=== PATIENT | female | born 1990 | race Caucasian/White ===

== ENCOUNTER 2017-06-08 22:00 | Emergency (ER) | payer BC ==
[~2017-06-08] VITALS: Ht 170.2 cm; Wt 68.0 kg
[2017-06-08 22:10] VITALS: BP 154/90
[2017-06-08] MEDS ORDERED: IV NORMAL SALINE 1,000ML 1,000 ML IV SCH (22:16)
--- NOTE | 2017-06-08 22:25 | PHYS DOC ---
Past History Past Medical History: No Pertinent History Additional Past Medical Histor: prior rib fracture Past Surgical History: No Surgical History Smoking: Non-smoker Alcohol Use: Occasionally Drug Use: None Adult General Chief Complaint Chief Complaint: ABDOMINAL PAIN [facility] HPI Patient is a pleasant otherwise healthy 27-year-old female who is in a monogamous relationship presents with left upper quadrant abdominal/chest wall pain. Her pain began earlier today described as sharp and stabbing with radiation to the sternum. It is worse with certain ranges of motion and breathing. It is not affected by food does not radiate to the back. 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 She denies any shortness of breath, night sweats, fevers has had a nonproductive cough with the symptoms. Patient denies any vomiting, diarrhea or other symptoms. Patient denies any UTI symptoms or back pain. Patient says she's had a prior injury to her ribs on the left after a fall about 5 years ago. Patient has had no travel, no recent antibiotic use. Differential diagnosis for chest pain: Pericarditis, myocarditis, endocarditis, pneumothorax, pneumonia, aortic dissection, esophageal spasm, esophagitis, peptic ulcer disease, acute coronary syndrome, mediastinitis, Boerhaave syndrome , musculoskeletal chest wall pain, costochondritis, intercostal strain, rib fracture, pulmonary contusion, pneumonitis, pleural effusion, pericardial effusion, pericardial tamponode, and pleurisy. Review of Systems Review of Systems Constitutional: Denies fever or chills [] Eyes: Denies change in visual acuity, redness, or eye pain [] HENT: Denies nasal congestion or sore throat [] Respiratory: Patient has a nonproductive cough and shortness of breath only secondary to pain in her chest wall. Cardiovascular: No additional information not addressed in HPI [] GI: He has pain in the left upper quadrant of the abdominal wall with no nausea no vomiting no diarrhea no constipation. : Denies dysuria or hematuria [] Musculoskeletal: Denies back pain or joint pain [] Integument: Denies rash or skin lesions [] Neurologic: Denies headache, focal weakness or sensory changes [] Endocrine: Denies polyuria or polydipsia [] All other systems were reviewed and found to be within normal limits, except as documented in this note. Current Medications Current Medications Current Medications Medications (Trade) Dose Ordered Sig/Eron Start Time Stop Time Status Last Admin Dose Admin Aspirin (Children'S Aspirin) 324 mg 1X ONCE 06/08/17 22:30 06/08/17 22:31 UNV Ketorolac Tromethamine (Toradol) 30 mg 1X ONCE 06/08/17 22:30 06/08/17 22:31 UNV Morphine Sulfate (Morphine 4mg Syringe) 4 mg 1X ONCE 06/08/17 22:30 06/08/17 22:31 UNV Sodium Chloride (Normal Saline Flush) 10 ml QSHIFT PRN 06/08/17 22:30 UNV Physical Exam Physical Exam Constitutional: Well developed, well nourished, no acute distress, non-toxic appearance. [] HENT: Normocephalic, atraumatic, bilateral external ears normal, oropharynx moist, no oral exudates, Neck: Normal range of motion, no tenderness, supple, no stridor. [] Cardiovascular:Heart rate regular rhythm, no murmur [] Lungs & Thorax: Bilateral breath sounds clear to auscultation she has marked tenderness to palpation of the left lateral chest wall with no obvious crepitus , no obvious rash, there is somewhat reproducible chest wall pain on examination. Abdomen: Bowel sounds normal, soft, patient has mild tenderness in left upper quadrant but no masses pulsatile masses released McBurney's point tender to palpation. Skin: Warm, dry, no erythema, no rash. [] Back: No tenderness, no CVA tenderness. [] Extremities: No tenderness, normal range of motion no edema in her lower legs Neurologic: Alert and oriented X 3, normal motor function, normal sensory function, no focal deficits noted. [] Psychologic: Affect normal, judgement normal, mood normal. [] EKG EKG Patient EKG read by me 10:32 PM 06/08/2017 temperature to heart rate of 78 normal sinus rhythm with a period of QRS RI interval is 138 which is normal, QRS width is 96 which [place] [address] normal, there is no ST segment T- wave changes consistent with acute coronary event or ischemia.[] Radiology/Procedures Radiology/Procedures []PA and lateral chest x-ray read by me time on chest x-ray 2247 demonstrates no pneumothorax, no rib fracture no pneumonia and no infiltrate no pleural effusion. Cardiac shadow is normal size. Course & Med Decision Making Course & Med Decision Making Pertinent Labs and Imaging studies reviewed. (See chart for details) []Patient presents with chest wall pain with a cough. Patient likely has pleurisy but given her symptoms we will make sure there is no evidence of pulmonary was him, pleural effusion or pneumonia in the left lower lung. Differential diagnosis for chest pain: Pericarditis, myocarditis, endocarditis, pneumothorax, pneumonia, aortic dissection, esophageal spasm, esophagitis, peptic ulcer disease, acute coronary syndrome, mediastinitis, Boerhaave syndrome , musculoskeletal chest wall pain, costochondritis, intercostal strain, rib fracture, pulmonary contusion, pneumonitis, pleural effusion, pericardial effusion, pericardial tamponode, and pleurisy. History: There is no history physical age and EKG findings patient is a score of 0 Highly suspicious 2 points moderately suspicious 1. slightly suspicious 0 point EKG: ST segment depression 2. nonspecific repolarization disturbance 1. normal 0 point Age: Greater than 65 2 points, 65-45 1., less than 45 years old 0 points Risk factors:> 3 risk factors 2 points, 1-2 risk factors one point, no risk factors 0 point Troponin: > 2 times normal 2 points, 1-2 times normal 1., normal limits 0 point Total score: Score % pts MACE/n MACE Policy 0-3 32% 1.9% 0.05% Discharge 4-6 51% 413/3136 13% 1.3% Observation Risk management 7-10 17% 518/1045 50% 2.8% Observation Treatment, CAGB discharge: I've spoken with the patient and/or caregivers. I've explained the patient's condition, diagnosis and treatment plan based on information available to me at this time. I've answered the patient's and/or caregivers questions and addressed any concerns. The patient and/or caregivers have a good understanding the patient's diagnosis, condition and treatment plan as can be expected at this point. Vital signs have been stabilized. The patient's condition is stable for discharge from the emergency department. The patient will pursue further outpatient evaluation with her primary care provider or other designated consulting physician as outlined in the discharge instructions. Patient and/or caregivers are agreeable to this plan of care and follow-up instructions have been explained in detail. The patient and/or caregivers have received these instructions in written format and expressed understanding of these discharge instructions. The patient and her caregivers are aware that if any significant change in condition or worsening of symptoms should prompt him to immediately return to this of the closest emergency department. If an emergent department is not readily available I would encourage him to call 911. Cristina Disclaimer Cristina Disclaimer This electronic medical record was generated, in whole or in part, using a voice recognition dictation system. Departure Departure: Impression: Primary Impression: Pleurisy Additional Impression: Chest pain Disposition: HOME, SELF-CARE Condition: GOOD Referrals: PCP,NO (PCP) Patient Instructions: Chest Pain (Nonspecific), Chest Wall Pain, Pleurisy Additional Instructions: My discharge plan Although you have low risk chest pain you May still have heart disease despite having an apparent negative workup today. I would advise that you follow-up with your primary care doctor this week to arrange follow-up with her sap architect. The sap architect will help stratify your risk for heart injury in the future. Follow up: In addition patient is asked to followup with their primary doctor, within a week for followup examination and to address patient's ongoing medical conditions. Patient is advised that in the Emergency Department primary complaints are addressed and only in light of known signs and symptoms. Patient should return immediately to the emergency department if new signs and symptoms develop or patient's condition worsens in any way. At time of discharge patient was in stable condition and had verbalized understanding of the discharge instructions. Scripts Hydrocodone Bit/Acetaminophen (HYDROCODONE-APAP 5-325 ) 1 Each Tablet 1 TAB PO PRN Q6HRS Y for PAIN for 5 Days, #10 TAB 0 Refills Prov: LISA TAVERA MD 06/08/17 Naproxen Sodium (NAPROXEN SODIUM) 275 Mg Tablet 275 MG PO BID for 7 Days, #14 TAB Prov: LISA TAVERA MD 06/08/17 Problem Qualifiers LISA TAVERA MD Jun 08, 2017 22:24
[2017-06-08] MEDS ORDERED: KETOROLAC 30 MG/ML VIAL. IV ONE (22:30)
[2017-06-08] MEDS ORDERED: MORPHINE SULFATE 4 MG/ML DISP.SYRIN. IV ONE (22:30)
[2017-06-08 22:42] LABS: BASO # 0.1 x10^3/uL (0.0-0.2); BASO % 1 % (0-3); EOS # 0.1 x10^3/uL (0.0-0.7); EOS % 1 % (0-3); HEMATOCRIT 42.4 % (36.0-47.0); LYMPH # 2.6 x10^3/uL (1.0-4.8); LYMPH % 29 % (24-48); MEAN CORPUSCULAR HEMOGLOBIN 32 pg (25-35); MEAN CORPUSCULAR HGB CONC 35 g/dL (31-37); MEAN CORPUSCULAR VOLUME 91 fL (79-100); MONO # 0.9 x10^3/uL (0.0-1.1); MONO % 10 % (0-9); NEUT # 5.3 x10^3uL (1.8-7.7); NEUT % 59 % (31-73); PLATELET COUNT 247 x10^3/uL (140-400); RED BLOOD COUNT 4.68 x10^6/uL (3.50-5.40); RED CELL DISTRIBUTION WIDTH 12.6 % (11.5-14.5)
[2017-06-08] MEDS ORDERED: 0.9 % SODIUM CHLORIDE 10 ML DISP.SYRIN. IV PRN (23:00)
[2017-06-08] MEDS ORDERED: ASPIRIN 81 MG TAB.CHEW PO ONE (23:00)
[2017-06-08 23:02] LABS: ALBUMIN 4.2 g/dL (3.4-5.0); CALCIUM 9.2 mg/dL (8.5-10.1); CREATININE 0.8 mg/dL (0.6-1.0); DIRECT BILIRUBIN 0.1 mg/dL (0.0-0.2); GFR 87.4; POTASSIUM 3.8 mmol/L (3.5-5.1); TOTAL BILIRUBIN 0.4 mg/dL (0.2-1.0); TOTAL PROTEIN 7.6 g/dL (6.4-8.2)
[2017-06-08] MEDS ORDERED: HYDR-2758 PO (23:16)
[2017-06-08] MEDS ORDERED: NAPR275T59 PO (23:16)
[2017-06-08] MEDS ORDERED: HYDROcodone/APAP 5/325MG 1 TAB TABLET PO ONE (23:30)
--- NOTE | 2017-06-09 06:42 | EKG ---
[address] [address] Test Date: 2017-06-08 Test Time: 22:32:09 Pat Name: WAYNE SPENCER Department: Room: Gender: F Csr Technician: LEIF : 1990 Requested By: LISA TAVERA Order Number: [id number] Reading MD: Lei Crews MD Measurements Intervals [place] Rate: 78 P: 62 MA: 138 QRS: 20 QRSD: 96 T: 24 QT: 384 QTc: 441 Interpretive Statements SINUS RHYTHM Electronically Signed On 06-12-2017 12:38:12 LEG ASSEMBLER by Lei Crews MD
--- NOTE | 2017-06-09 07:41 | RAD ---
Chest, 2 views, 06/08/2017: History: Chest wall pain The heart size is normal. The lungs are clear. There is no evidence of pleural fluid. IMPRESSION: No acute cardiopulmonary abnormality is detected
== END 2017-06-08 23:12 | disposition home or self-care (01) ==
LOC: ER 22:00
DX: R09.1 Pleurisy (principal); R10.12 Left upper quadrant pain
CPT/HCPCS: 36415; 71046; 80048; 80076; 83690; 83880; 84484; 85025; 85379; 93005; 96361; 96374; 99285; J2270; J7030

== ENCOUNTER 2018-05-03 02:50 | Emergency (ER) | payer BC ==
[~2018-05-03] VITALS: Ht 170.2 cm; Wt 81.2 kg
[~2018-05-03 02:50] MED LIST: HYDR-2155 PO; NAPR275T59 PO
--- NOTE | 2018-05-03 02:52 | ED.ADGEN ---
Past History Past Medical History: No Pertinent History, Hyperthyroid Additional Past Medical Histor: prior rib fracture Past Surgical History: No Surgical History Smoking: Non-smoker Alcohol Use: Occasionally Drug Use: None Adult General Chief Complaint Chief Complaint ".. 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 At first they tried suppressing my thyroid with thyroxine... This was not successful so they decided on surgery... They removed my thyroid on 04-14-18.. I did have a lot of hoarseness after surgery.... They said my vocal cords were not working very well.... And it was because of the scar tissue from the Milagro's... However I got over the hoarseness... But in the last 2 days it has returned... Now feels like my incision site is more swollen and is more tender... I am out of my T- 3 I used for pain after the surgery.. I never had any problems with my calcium after the surgery..." HPI HPI Patient is a 28 year old female who presents with above hx and complaints of hoarseness, incision edema and sore throat. Pt. Post thyroidectomy for Milagro's. Patient has been able to eat. Ate potato chips just before arrival. No problems swallowing. No appreciable stridor. Suture line appears well-healed. Patient reports there is some edema above the suture line which is not appreciable by me. Skin is not hot to the touch and does not appear infected. Friend at bed side states she does seem more hoarse as she was after the surgery. No hx. of fever, or chills. No hx of recent injury. No hx of travel or specific ill contacts. No hx of immunosuppression. Site of pt concern is at the cricoid notch. Can see epiglottis tip and it does not appear to be swollen. There may be some mild pharyngeal erythema. Pt has continued her levothyroid. Review of Systems Review of Systems Constitutional: Denies fever or chills [] Eyes: Denies change in visual acuity, redness, or eye pain [] HENT: Denies nasal congestion. Complaints of sore throat and return of hoarseness. Respiratory: Denies cough or shortness of breath [] Cardiovascular: No additional information not addressed in HPI [] GI: Denies abdominal pain, nausea, vomiting, bloody stools or diarrhea [] : Denies dysuria or hematuria [] Musculoskeletal: Denies back pain or joint pain [] Integument: Denies rash or skin lesions [] Neurologic: Denies headache, focal weakness or sensory changes [] Endocrine: Denies polyuria or polydipsia [] All other systems were reviewed and found to be within normal limits, except as documented in this note. Family History Family History Noncontributory Current Medications Current Medications Current Medications Medications (Trade) Dose Ordered Sig/Eron Start Time Stop Time Status Last Admin Dose Admin Oxycodone/ Acetaminophen (Percocet 5/325) 2 tab 1X ONCE 05/03/18 04:00 05/03/18 04:02 DC 05/03/18 03:34 2 TAB Prednisone (Prednisone) 50 mg 1X ONCE 05/03/18 04:00 05/03/18 04:02 DC 05/03/18 03:34 50 MG Allergies Allergies Allergies Coded Allergies Type Severity Reaction Last Updated Verified Penicillins Allergy Unknown 06/08/17 Yes amoxicillin Allergy Unknown 06/08/17 Yes Physical Exam Physical Exam Constitutional: Well developed, well nourished, mild distress, non-toxic appearance. [] HENT: Normocephalic, atraumatic, bilateral external ears normal, oropharynx moist, some mild erythematous pharynx, no oral exudates, nose normal. []Appears that is stable suture line. Eyes: PERRLA, EOMI, conjunctiva normal, no discharge. [] Neck: Normal range of motion, no tenderness, supple, no stridor. [] Cardiovascular:Heart rate regular rhythm, no murmur [] Lungs & Thorax: Bilateral breath sounds equal at apex on auscultation []no wheezing or stridor. Abdomen: Bowel sounds normal, soft, no tenderness, no masses, no pulsatile masses. [] Skin: Warm, dry, no erythema, no rash. [] Back: No tenderness, no CVA tenderness. [] Extremities: No tenderness, no cyanosis, no clubbing, ROM intact, no edema. [] Neurologic: Alert and oriented X 3, normal motor function, normal sensory function, no focal deficits noted. [] Psychologic: Affect anxious, judgement normal, mood normal. [] Current Patient Data Vital Signs Vital Signs Date Time Temp Pulse Resp B/P (MAP) Pulse Ox O2 Delivery O2 Flow Rate FiO2 05/03/18 04:22 70 16 141/98 (112) 98 Room Air 05/03/18 02:54 98.0 Lab Results Laboratory Tests Test 05/03/18 03:34 Group A Streptococcus Rapid Negative (NEGATIVE) EKG EKG [] Radiology/Procedures Radiology/Procedures [] Course & Med Decision Making Course & Med Decision Making Pertinent Labs and Imaging studies reviewed. (See chart for details). Patient is followed with ENT this morning. Take Tylenol for pain and for marked pain to take Percocet. Take prednisone 50 mg a day. Return if any concerns. At time of discharge pt. reports marked improvement symptom and resolution of pain. Pt. must see her ENT to evaluate suture line and her vocal cords function. [] Final Impression Final Impression 1. Hoarse 2. Painful Incision Site[] Dragon Disclaimer Dragon Disclaimer This electronic medical record was generated, in whole or in part, using a voice recognition dictation system. CITLALY DUNBAR MD May 03, 2018 02:52
[2018-05-03] MEDS ORDERED: oxyCODONE/APAP 5/325 1 TAB TABLET PO ONE (04:00)
[2018-05-03] MEDS ORDERED: PRED50TA PO (04:00)
[2018-05-03] MEDS ORDERED: predniSONE 20 MG TABLET PO ONE (04:00)
[2018-05-03] MEDS ORDERED: OXYC1TAB15 PO (04:00)
[2018-05-03 04:22] VITALS: BP 141/98
== END 2018-05-03 04:25 | disposition home or self-care (01) ==
LOC: ER 02:50
DX: G89.18 Other acute postprocedural pain (principal); R49.0 Dysphonia; E89.0 Postprocedural hypothyroidism; Z88.0 Allergy status to penicillin; Z88.1 Allergy status to other antibiotic agents
CPT/HCPCS: 87070; 87880; 99283; J7512

== ENCOUNTER 2019-01-10 18:32 | Emergency (ER) | payer BC, MEDICARE ==
[~2019-01-10] VITALS: Ht 170.2 cm; Wt 81.2 kg
[~2019-01-10 18:32] MED LIST changes: +OXYC1TAB15 PO; +PRED50TA PO
[2019-01-10 19:14] VITALS: BP 141/87
--- NOTE | 2019-01-10 19:35 | ED.ADGEN ---
Past History Past Medical History: No Pertinent History, Hypertension Additional Past Medical Histor: prior rib fracture Past Surgical History: Other Smoking: Non-smoker Alcohol Use: None Drug Use: None Adult General Chief Complaint Chief Complaint "... My Say Allen.. ' .Juan Pablo'.. Jamal rose... and he jumped up and hit me in the nose... last night.. HPI HPI Patient is a 28 year old female who presents with facial contusion from her dog 'Juan Pablo'. Patient denies any loss of consciousness. Patient does have contusion to her face and swelling of her nose. There is some deviation of her nose, no septal hematoma. Patient does have a history of previous nasal fracture. No recent travel. No history immunosuppression. No recent travel. Patient normally healthy. Review of Systems Review of Systems Constitutional: Denies fever or chills [] Eyes: Denies change in visual acuity, redness, or eye pain [] HENT: Complains of nasal injury and contusion to face Respiratory: Denies cough or shortness of breath [] Cardiovascular: No additional information not addressed in HPI [] GI: Denies abdominal pain, nausea, vomiting, bloody stools or diarrhea [] : Denies dysuria or hematuria [] Musculoskeletal: Denies back pain or joint pain [] Integument: Denies rash or skin lesions [] Neurologic: Denies headache, focal weakness or sensory changes [] Endocrine: Denies polyuria or polydipsia [] All other systems were reviewed and found to be within normal limits, except as documented in this note. Family History Family History Noncontributory Current Medications Current Medications Current Medications Medications (Trade) Dose Ordered Sig/Eron Start Time Stop Time Status Last Admin Dose Admin Oxycodone/ Acetaminophen (Percocet 5/325) 2 tab 1X ONCE 01/10/19 20:00 01/10/19 20:08 DC 01/10/19 20:12 2 TAB Allergies Allergies Allergies Coded Allergies Type Severity Reaction Last Updated Verified Penicillins Allergy Unknown 06/08/17 Yes amoxicillin Allergy Unknown 06/08/17 Yes Physical Exam Physical Exam Constitutional: Well developed, well nourished, moderately acute distress, non- toxic appearance. [] HENT: Normocephalic, contusion to nose,, bilateral external ears normal, oropharynx moist, no oral exudates, nose normal. [] Eyes: PERRLA, EOMI, conjunctiva normal, no discharge. [] Neck: Normal range of motion, no tenderness, supple, no stridor. [] Cardiovascular:Heart rate regular rhythm, no murmur [] Lungs & Thorax: Bilateral breath sounds equal at apex auscultation [] Abdomen: Bowel sounds normal, soft, no tenderness, no masses, no pulsatile masses. [] Skin: Warm, dry, no erythema, no rash. [] Back: No tenderness, no CVA tenderness. [] Extremities: No tenderness, no cyanosis, no clubbing, ROM intact, no edema. [] Neurologic: Alert and oriented X 3, normal motor function, normal sensory function, no focal deficits noted. [] Psychologic: Affect anxious, judgement normal, mood normal. [] Current Patient Data Vital Signs Vital Signs Date Time Temp Pulse Resp B/P (MAP) Pulse Ox O2 Delivery O2 Flow Rate FiO2 01/10/19 21:12 20 99 Room Air 01/10/19 19:14 98.9 91 EKG EKG [] Radiology/Procedures Radiology/Procedures [][place] [address] IMAGING REPORT Signed PATIENT: WAYNE SPENCER ACCOUNT: [id number] : 1990 LOCATION: ER AGE: 28 SEX: F EXAM STATUS: REG ER ORD. PHYSICIAN: CITLALY DUNBAR MD REASON: Nose and head injury yesterday, dog hit her in the face. PROCEDURE: CT HEAD AND MAXILLOFACIAL [facility] Compliance Statement: One or more of the following individualized dose reduction techniques were utilized for this examination: 1. Automated exposure control 2. Adjustment of the mA and/or kV according to patient size 3. Use of iterative reconstruction technique CT head and maxillofacial without contrast 01/10/2019 7:52 PM INDICATION: Nose and head injury with history of broken nose COMPARISON: None available TECHNIQUE: Multiple axial CT images of the head were obtained from skull base through the vertex without intravenous contrast. FINDINGS: Head: Ventricles, sulci and basal cisterns are within normal limits. There is no hydrocephalus. Reese-white matter differentiation is normal. There is no acute intracranial hemorrhage. There is no mass, mass effect or midline shift. Posterior fossa is normal in appearance. Osseous orbits are intact. Globes are spherical and contour. Extraocular muscles are normal in appearance. Optic nerves are normal. Nasal septum is minimally deviated to the right. Nasal bones are intact. Paranasal sinuses are well aerated. Ostiomeatal units are patent. Maxilla and mandible appear intact. Temporomandibular joints are well aligned. Soft tissues of the face appear normal. The spaces of the neck appear intact. Oral cavity and nasopharynx appear intact. IMPRESSION: No acute intracranial hemorrhage. No acute maxillofacial fracture is identified. Electronically signed by: Justin Dangelo MD (01/10/2019 8:38 PM) [facility] DICTATED AND SIGNED BY: JUSTIN DANGELO MD DATE: 01/10/192037 CC: CITLALY DUNBAR MD; PCP,NO ~ Course & Med Decision Making Course & Med Decision Making Pertinent Labs and Imaging studies reviewed. (See chart for details) Use ice packs as needed. Follow-up with ENT. Follow-up primary care. Return if any concerns. [] Final Impression Final Impression 1. Nasal Contusion[] 2. Head injury Dragon Disclaimer Dragon Disclaimer This electronic medical record was generated, in whole or in part, using a voice recognition dictation system. Dragon Disclaimer This chart was dictated in whole or in part using Voice Recognition software in a busy, high-work load, and often noisy Emergency Department environment. It may contain unintended and wholly unrecognized errors or omissions. CITLALY DUNBAR MD Jan 10, 2019 19:35
[2019-01-10] MEDS ORDERED: oxyCODONE/APAP 5/325 1 TAB TABLET PO ONE (20:00)
--- NOTE | 2019-01-10 20:41 | RAD ---
[employer] Compliance Statement: One or more of the following individualized dose reduction techniques were utilized for this examination: 1. Automated exposure control 2. Adjustment of the mA and/or kV according to patient size 3. Use of iterative reconstruction technique CT head and maxillofacial without contrast 01/10/2019 7:52 PM INDICATION: Nose and head injury with history of broken nose COMPARISON: None available TECHNIQUE: Multiple axial CT images of the head were obtained from skull base through the vertex without intravenous contrast. FINDINGS: Head: Ventricles, sulci and basal cisterns are within normal limits. There is no hydrocephalus. Reese-white matter differentiation is normal. There is no acute intracranial hemorrhage. There is no mass, mass effect or midline shift. Posterior fossa is normal in appearance. Osseous orbits are intact. Globes are spherical and contour. Extraocular muscles are normal in appearance. Optic nerves are normal. Nasal septum is minimally deviated to the right. Nasal bones are intact. Paranasal sinuses are well aerated. Ostiomeatal units are patent. Maxilla and mandible appear intact. Temporomandibular joints are well aligned. Soft tissues of the face appear normal. The spaces of the neck appear intact. Oral cavity and nasopharynx appear intact. IMPRESSION: No acute intracranial hemorrhage. No acute maxillofacial fracture is identified. Electronically signed by: Radha Lynn MD (01/10/2019 8:38 PM) [facility]
== END 2019-01-10 21:05 | disposition home or self-care (01) ==
LOC: ER 18:32
DX: S00.33XA Contusion of nose, initial encounter (principal); I10 Essential (primary) hypertension; Z88.0 Allergy status to penicillin; Z88.1 Allergy status to other antibiotic agents; W54.1XXA Struck by dog, initial encounter; Y93.89 Activity, other specified; Y92.89 Other specified places as the place of occurrence of the external cause; Y99.8 Other external cause status
CPT/HCPCS: 70450; 70486; 99284-25

== ENCOUNTER 2019-05-11 21:08 | Emergency (ER) | payer MEDICARE, OTHER ==
[~2019-05-11] VITALS: Ht 167.6 cm; Wt 79.4 kg
--- NOTE | 2019-05-11 22:11 | PHYS DOC ---
Past History Past Medical History: Hypertension, Hypothyroid Additional Past Medical Histor: prior rib fracture Past Surgical History: Other Additional Past Surgical Histo: ACL and Meniscus Smoking: Non-smoker Alcohol Use: None Drug Use: None Adult General Chief Complaint Chief Complaint: LOWEREXTREMITY INJURY [facility] Patient is a 29 year old female who presents with complaint of right calf pain. The patient states that she has been having worsening pain in her right calf over the past 4 days. The patient recently had arthroscopic knee surgery in the right knee [address] Connors at [facility] for repair of torn meniscus and ACL. States that she had been improving from her surgery until she started developing ancient in her right calf. States that the pain has been continuous and localized to her posterior calf. Has also noticed swelling in her calf. She called the on-call physician and was told to come to the emergency department to be evaluated due to concern for possible DVT and is thrombosis. Denies any chest pain or shortness of breath. Not currently on any anticoagulation. Reports history of hypertension and hypothyroidism. Review of Systems Review of Systems Constitutional: Denies fever or chills [] Eyes: Denies change in visual acuity, redness, or eye pain [] HENT: Denies nasal congestion or sore throat [] Respiratory: Denies cough or shortness of breath [] Cardiovascular: No additional information not addressed in HPI [] GI: Denies abdominal pain, nausea, vomiting, bloody stools or diarrhea [] : Denies dysuria or hematuria [] Musculoskeletal: Right calf pain, right lower leg swelling[] Integument: Denies rash or skin lesions [] Neurologic: Denies headache, focal weakness or sensory changes [] All other systems were reviewed and found to be within normal limits, except as documented in this note. Allergies Allergies Allergies Coded Allergies Type Severity Reaction Last Updated Verified Penicillins Allergy Unknown 06/08/17 Yes amoxicillin Allergy Unknown 06/08/17 Yes Physical Exam Physical Exam Constitutional: Alert, afebrile, appears in [id number] discomfort. [] HENT: Normocephalic, atraumatic, bilateral external ears normal, oropharynx moist, no oral exudates, nose normal. [] Eyes: PERRLA, EOMI, conjunctiva normal, no discharge. [] Neck: Normal range of motion, no tenderness, supple, no stridor. [] Cardiovascular:Heart rate regular rhythm, no murmur [] Lungs & Thorax: Bilateral breath sounds clear to auscultation [] Abdomen: Bowel sounds normal, soft, no tenderness, no masses, no pulsatile shayan s. [] Skin: Warm, dry, no erythema, no rash. [] Back: No tenderness, no CVA tenderness. [] Extremities: Right knee incisions appear clean, dry, and sutures are intact, diffuse ecchymosis starting from right knee extending distally to the right lower leg, proximal to mid right calf tenderness to palpation. [] Neurologic: Alert and oriented X 3, normal motor function, normal sensory function, no focal deficits noted. [] Current Patient Data Vital Signs Vital Signs Date Time Temp Pulse Resp B/P (MAP) Pulse Ox O2 Delivery O2 Flow Rate FiO2 05/11/19 21:44 98.5 90 18 99 Room Air Lab Results Not performed EKG EKG Not performed[] Radiology/Procedures Radiology/Procedures [address] [address] IMAGING REPORT Signed PATIENT: WAYNE SPENCER ACCOUNT: [id number] : 1990 LOCATION: ER AGE: 29 SEX: F EXAM STATUS: REG ER ORD. PHYSICIAN: EDWARD NEWBERRY MD REASON: recent right knee surgery, calf pain and swelling, r/o dvt PROCEDURE: VENOUS LOWER EXTREMITY RIGHT CLINICAL HISTORY: Calf pain, right knee surgery, swelling COMPARISON: None available. TECHNIQUE: Ultrasound evaluation of the right lower extremity was performed from the groin to the upper calf with rothman scale, spectral and color doppler evaluation. FINDINGS: The right common femoral vein, and femoral vein, including the saphenous-femoral junction are normal in appearance. Color and spectral Doppler evaluation demonstrates normal spontaneous flow, augmentation and phasicity. The right popliteal vein and peroneal veins also demonstrate normal compressibility and flow. Occlusive thrombus is seen within the posterior tibial vein. IMPRESSION: Occlusive thrombus is seen within the right posterior tibial vein. Electronically signed by: Tk Alcala MD (05/12/2019 12:11 AM) [facility] DICTATED AND SIGNED BY: TK ALCALA MD DATE: 05/12/19 001 CC: EDWARD NEWBERRY MD; PCP,UNKNOWN ~ [] Course & Med Decision Making Course & Med Decision Making Pertinent Labs and Imaging studies reviewed. (See chart for details) Ultrasound shows evidence of a right posterior tibial vein thrombosis. This appears to be a distal DVT as below the knee. This carries a lower incidence of proximal extension and very low risk for development of pulmonary embolism. Due to low risk and recent surgery, the patient does not need immediate anticoagulation at this time. Advised use of daily baby aspirin and application of warm compresses to the calf muscle to help treatment of symptoms. Prescribed short course of hydrocodone to use as needed for treatment of pain. Recommended follow-up with patient's orthopedic surgeon in the next 2 days for reevaluation as patient will need to have a repeat ultrasound in the next 2 weeks to reevaluate thrombosis and potential need for anticoagulation at that time. Recommended return to the emergency department for any worsening symptoms. Patient was understanding and in agreement with treatment plan.[] Dragon Disclaimer Dragon Disclaimer This electronic medical record was generated, in whole or in part, using a voice recognition dictation system. Departure Departure: Impression: Primary Impression: Thrombophlebitis of posterior tibial vein Disposition: HOME, SELF-CARE Condition: STABLE Referrals: PCP,UNKNOWN (PCP) Patient Instructions: Deep Vein Thrombosis Additional Instructions: Your ultrasound imaging showed a blood clot in the right posterior tibial vein. This vein is below your knee and carries a very low risk for pulmonary embolism. Starting oral anticoagulation is not immediately indicated at this time. Your doctor will need notification of this as he will need to schedule you for a repeat ultrasound within the next 2 weeks. It is recommended that you start taking a daily baby aspirin and you may also apply a warm compress to your calf muscle 3 times a day for 15 minutes at a time. Please return to the emergency department if he developed any worsening symptoms such as severe pain or other symptoms including chest pain, shortness of breath, or fever. Scripts Hydrocodone Bit/Acetaminophen (NORCO 5-325 TABLET) 1 Each Tablet 1-2 TAB PO Q4-6HRS, #20 TAB Prov: EDWARD NEWBERRY MD 05/12/19 Problem Qualifiers Primary Impression: Thrombophlebitis of posterior tibial vein Laterality: right Qualified Codes: I80.231 - Phlebitis and thrombophlebitis of right tibial vein EDWARD NEWBERRY MD May 11, 2019 22:11
[2019-05-11] MEDS ORDERED: HYDROcodone/APAP 7.5/325MG 1 TAB TABLET PO ONE (23:15)
--- NOTE | 2019-05-12 00:14 | RAD ---
CLINICAL HISTORY: Calf pain, right knee surgery, swelling COMPARISON: None available. TECHNIQUE: Ultrasound evaluation of the right lower extremity was performed from the groin to the upper calf with rothman scale, spectral and color doppler evaluation. FINDINGS: The right common femoral vein, and femoral vein, including the saphenous-femoral junction are normal in appearance. Color and spectral Doppler evaluation demonstrates normal spontaneous flow, augmentation and phasicity. The right popliteal vein and peroneal veins also demonstrate normal compressibility and flow. Occlusive thrombus is seen within the posterior tibial vein. IMPRESSION: Occlusive thrombus is seen within the right posterior tibial vein. Electronically signed by: Tk Haynes MD (05/12/2019 12:11 AM) [facility]
[2019-05-12] MEDS ORDERED: HYDR-3165 PO (00:42)
[2019-05-12 00:53] VITALS: BP 136/67
== END 2019-05-12 00:55 | disposition home or self-care (01) ==
LOC: ER 21:08
DX: I80.231 Phlebitis and thrombophlebitis of right tibial vein (principal); I10 Essential (primary) hypertension; E03.9 Hypothyroidism, unspecified; Z88.0 Allergy status to penicillin; Z88.1 Allergy status to other antibiotic agents
CPT/HCPCS: 93971; 99284-25

== ENCOUNTER 2020-08-25 18:35 | Emergency (ER) | payer OTHER ==
[~2020-08-25] VITALS: Ht 167.6 cm; Wt 81.2 kg
[~2020-08-25 18:35] MED LIST changes: +HYDR-3165 PO
--- NOTE | 2020-08-25 18:53 | PHYS DOC ---
Past History Past Medical History: Hypertension, Hypothyroid Additional Past Medical Histor: prior rib fracture Past Surgical History: Other Additional Past Surgical Histo: ACL and Meniscus Smoking: Non-smoker Alcohol Use: None Drug Use: None General Adult HPI: HPI: ".. I feel like I got the COVID again.. I had it in Nov... but I got chills, aches... Pain..... Had a negative test at urgent care yesterday for Covid...which was negative. 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 No history of recent travel. No specific ill contacts. No history immunosuppression. Patient normally follows with Dr. Hooker. Patient reportedly had Covid in April. Has had prolonged sequela of fatigue and reactive airway. Patient denies any new exposures to Covid. Patient has had 3 Covid test that have been negative since then the initial positive Covid test and April.. Patient did not get flu va ccination this season. No recent travel. Patient has used inhalers for her reactive airway symptoms. Patient did complete a course of Zithromax for her Covid pneumonia. Patient spouse is active duty. Her spouse also had Covid she is with the local [employer].. History of hypothyroidism. History of hypertension. Review of Systems: Review of Systems: Constitutional: Subjective complaints of fever or chills Eyes: Denies change in visual acuity HENT: Denies nasal congestion or sore throat Respiratory: Complains of reactive airway Cardiovascular: Denies chest pain or edema GI: Denies abdominal pain, nausea, vomiting, bloody stools or diarrhea : Denies dysuria Musculoskeletal: Complains of generalized fatigue Integument: Denies rash Neurologic: Denies headache, focal weakness or sensory changes Endocrine: Denies polyuria or polydipsia Lymphatic: Denies swollen glands Psychiatric: Denies depression or anxiety Family History: Family History: Noncontributory presentation Current Medications: Current Meds: See nursing for home meds did take Tylenol prior to coming to the ED today. Allergies: Allergies: Allergies Coded Allergies Type Severity Reaction Last Updated Verified Penicillins Allergy Unknown 06/08/17 Yes amoxicillin Allergy Unknown 06/08/17 Yes Physical Exam: PE: Constitutional: moderate acute distress, non-toxic appearance. [] HENT: Normocephalic, atraumatic, bilateral external ears normal, oropharynx dry, slightly injected , no oral exudates, nose normal. [] TMs had a small amount of fluid behind TMs but no marked erythema Eyes: PERRLA, EOMI, conjunctiva normal, no discharge. [] Neck: Normal range of motion, no tenderness, supple, no stridor. [] Thyroid surgery scar on neck Cardiovascular:Heart rate regular rhythm, no murmur [] Lungs & Thorax: Bilateral breath sounds equal at apex with a few scattered wheezes on auscultation [] Abdomen: Bowel sounds slightly hyperactive, soft, no tenderness, no masses, no pulsatile masses. [] Skin: Warm, dry, no erythema, no rash. [] Back: No tenderness, no CVA tenderness. [] Extremities: No tenderness, no cyanosis, no clubbing, ROM intact, no edema. No cording appreciated Neurologic: Alert and oriented X 3, normal motor function, normal sensory function, no focal deficits noted. [] Psychologic: Affect anxious, judgement normal, mood normal. [] EKG: EKG: [] Radiology/Procedures: Radiology/Procedures: [][place] [address] IMAGING REPORT Signed PATIENT: WAYNE SPENCER ACCOUNT: [id number] : 1990 LOCATION: ER AGE: 30 SEX: F EXAM STATUS: REG ER ORD. PHYSICIAN: CITLALY DUNBAR MD REASON: DYSPNEA PROCEDURE: CHEST PA & LATERAL Exam: Chest 2 views INDICATION: Dyspnea TECHNIQUE: Frontal and lateral views the chest Comparisons: 06/27/2017 FINDINGS: The cardiomediastinal silhouette and pulmonary vessels are within normal limits. The lung and pleural spaces are clear. IMPRESSION: No acute cardiopulmonary process. Electronically signed by: Jennifer Ernst MD (08/25/2020 9:05 PM) [facility] DICTATED AND SIGNED BY: JENNIFER ERNST MD DATE: 08/25/202102 CC: SANG HOOKER MD; CITLALY DUNBAR MD ~MTH0 0 Heart Score: C/O Chest Pain: No HEART Score for Chest Pain: HEART Score for Chest Pain Response (Comments) Value History Slighlty/Non-Suspicious 0 ECG Normal 0 Age < 45 0 Risk Factors 1 or 2 Risk Factors 1 Troponin < Normal Limit 0 Total 1 Risk Factors: Risk Factors: DM, Current or recent (<one month) smoker, HTN, HLP, family history of CAD, obesity. Risk Scores: Score 0 - 3: 2.5% MACE over next 6 weeks - Discharge Home Score 4 - 6: 20.3% MACE over next 6 weeks - Admit for Clinical Observation Score 7 - 10: 72.7% MACE over next 6 weeks - Early Invasive Strategies Course & Med Decision Making: Course & Med Decision Making Pertinent Labs and Imaging studies reviewed. (See chart for details) Patient continue to push fluids. Get adequate rest. Follow-up primary care. Use MDIs as previous directed. Return if any concerns. Impression: 1. Complaints of fever and chills subjectively 2. Generalized myalgia arthralgia and malaise 3. Viral syndrome 4. Hx of COVID n 2019 5. Post Covid sequela of reactive airway [] Dragon Disclaimer: Dragon Disclaimer: This electronic medical record was generated, in whole or in part, using a voice recognition dictation system. Departure Departure: Referrals: SANG HOOKER MD (PCP) Cristina Disclaimer This chart was dictated in whole or in part using Voice Recognition software in a busy, high-work load, and often noisy Emergency Department environment. It may contain unintended and wholly unrecognized errors or omissions. Dragon Disclaimer This chart was dictated in whole or in part using Voice Recognition software in a busy, high-work load, and often noisy Emergency Department environment. It may contain unintended and wholly unrecognized errors or omissions. CITLALY DUNBAR MD Aug 25, 2020 18:53
[2020-08-25 19:05] VITALS: BP 149/97
[2020-08-25] MEDS ORDERED: IV RINGERS SOLUTION,LACTATED 1,000 ML IV SCH (19:30)
[2020-08-25 20:16] LABS: BASO # 0.1 x10^3/uL (0.0-0.2); BASO % 1 % (0-3); EOS # 0.2 x10^3/uL (0.0-0.7); EOS % 3 % (0-3); HEMATOCRIT 34.1 % (36.0-47.0); LYMPH % 30 % (24-48); MEAN CORPUSCULAR HEMOGLOBIN 32 pg (25-35); MEAN CORPUSCULAR HGB CONC 35 g/dL (31-37); MEAN CORPUSCULAR VOLUME 91 fL (79-100); MONO % 14 % (0-9); NEUT # 3.5 x10^3uL (1.8-7.7); NEUT % 52 % (31-73); PLATELET COUNT 219 x10^3/uL (140-400); RED BLOOD COUNT 3.74 x10^6/uL (3.50-5.40); RED CELL DISTRIBUTION WIDTH 12.5 % (11.5-14.5); WHITE BLOOD COUNT 6.8 x10^3/uL (4.0-11.0)
[2020-08-25 20:25] LABS: CALCIUM 8.8 mg/dL (8.5-10.1); CREATININE 0.8 mg/dL (0.6-1.0); GFR 85.4; POTASSIUM 4.2 mmol/L (3.5-5.1)
[2020-08-25 20:27] LABS: C REACTIVE PROTEIN 7.4 mg/L (0-3.3)
[2020-08-25 20:30] LABS: BACTERIA,URINE MOD /HPF (0-FEW); BILIRUBIN,URINE NEG (NEG); CLARITY,URINE CLEAR; COLOR,URINE YELLOW; GLUCOSE,URINE NEG (NEG); NITRITE,URINE NEG (NEG); RBC,URINE OCC /HPF (0-2); SQUAMOUS EPITHELIAL CELL,UR MOD /LPF; UROBILINOGEN,URINE 0.2 mg/dL (0.2 mg/dL)
[2020-08-25 20:32] LABS: INFLUENZA A PATIENT NEGATIVE (NEGATIVE); INFLUENZA B PATIENT NEGATIVE (NEGATIVE)
--- NOTE | 2020-08-25 21:08 | RAD ---
Exam: Chest 2 views INDICATION: Dyspnea TECHNIQUE: Frontal and lateral views the chest Comparisons: 06/27/2017 FINDINGS: The cardiomediastinal silhouette and pulmonary vessels are within normal limits. The lung and pleural spaces are clear. IMPRESSION: No acute cardiopulmonary process. Electronically signed by: Jennifer Davis MD (08/25/2020 9:05 PM) [facility]
== END 2020-08-25 21:25 | disposition home or self-care (01) ==
LOC: ER 18:35
DX: B34.9 Viral infection, unspecified (principal); Z20.822 Contact with and (suspected) exposure to COVID-19; I10 Essential (primary) hypertension; E03.9 Hypothyroidism, unspecified; Z88.0 Allergy status to penicillin; Z88.1 Allergy status to other antibiotic agents
CPT/HCPCS: 36415; 71046; 80048; 81001; 81025; 84702; 85025; 86140; 87070; 87086; 87147; 87804; 87880; 96360; 99284; J7120; U0003

== ENCOUNTER 2020-08-30 09:25 | Emergency (ER) | payer OTHER ==
[~2020-08-30] VITALS: Ht 167.6 cm; Wt 82.7 kg
[2020-08-30 09:25] VITALS: BP 135/108
[2020-08-30] MEDS: IV NORMAL SALINE 1,000ML 1,000 ML IV SCH (09:45)
--- NOTE | 2020-08-30 09:47 | EKG ---
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
[2020-08-30 09:54] LABS: BASO % 1 % (0-3); EOS # 0.2 x10^3/uL (0.0-0.7); EOS % 3 % (0-3); HEMATOCRIT 35.6 % (36.0-47.0); HEMOGLOBIN 12.3 g/dL (12.0-15.5); LYMPH % 36 % (24-48); MEAN CORPUSCULAR HEMOGLOBIN 32 pg (25-35); MEAN CORPUSCULAR HGB CONC 35 g/dL (31-37); MEAN CORPUSCULAR VOLUME 93 fL (79-100); MONO # 0.9 x10^3/uL (0.0-1.1); MONO % 16 % (0-9); NEUT # 2.6 x10^3uL (1.8-7.7); NEUT % 45 % (31-73); PLATELET COUNT 263 x10^3/uL (140-400); RED BLOOD COUNT 3.85 x10^6/uL (3.50-5.40); RED CELL DISTRIBUTION WIDTH 12.6 % (11.5-14.5); WHITE BLOOD COUNT 5.7 x10^3/uL (4.0-11.0)
--- NOTE | 2020-08-30 10:02 | RAD ---
XR CHEST 1V History: Chest pain. Comparison: 08/25/2020 Technique: AP radiograph of the chest. Findings: The lungs are adequately and symmetrically inflated. No airspace consolidation, pleural effusion or p neumothorax. The cardiomediastinal silhouette and pulmonary vasculature are within normal limits. No acute osseous abnormality. Soft tissues are unremarkable. Impression: 1. No acute cardiopulmonary process. Electronically signed by: Edwin Be MD (08/30/2020 9:59 AM) [facility]
[2020-08-30 10:10] LABS: CALCIUM 9.2 mg/dL (8.5-10.1); CREATININE 0.7 mg/dL (0.6-1.0); GFR 99.6; POTASSIUM 3.8 mmol/L (3.5-5.1)
[2020-08-30 10:15] LABS: ALBUMIN 3.2 g/dL (3.4-5.0); ALBUMIN/GLOBULIN RATIO 0.9 (1.0-1.7); MAGNESIUM 1.9 mg/dL (1.8-2.4); TOTAL BILIRUBIN 0.3 mg/dL (0.2-1.0); TOTAL PROTEIN 6.9 g/dL (6.4-8.2)
[2020-08-30 11:09] LABS: BACTERIA,URINE FEW /HPF (0-FEW); BILIRUBIN,URINE NEG (NEG); CLARITY,URINE HAZY; COLOR,URINE YELLOW; GLUCOSE,URINE NEG (NEG); NITRITE,URINE NEG (NEG); RBC,URINE OCC /HPF (0-2); SQUAMOUS EPITHELIAL CELL,UR MANY /LPF; UROBILINOGEN,URINE 0.2 mg/dL (0.2 mg/dL)
--- NOTE | 2020-08-30 12:03 | PHYS DOC ---
Past History Past Medical History: Hypertension, Hypothyroid Additional Past Medical Histor: prior rib fracture Past Surgical History: Appendectomy, Tonsillectomy, Other Additional Past Surgical Histo: ACL and Meniscus, THYROIDECTOMY, KNEE SX, SHOULDER Smoking: Non-smoker Alcohol Use: None Drug Use: None Adult General Chief Complaint Chief Complaint: Palpitations HPI HPI Patient is a 22-year-old female with past medical hypertension, palpitations and hypothyroidism status post thyroidectomy now presenting emergency department with palpitations and generalized edema. Patient states that 2 weeks ago she stopped taking her Norvasc metoprolol because she felt that she no longer needed it. States that since that time she has noted generalized edema most primarily in the anterior tibial regions and is at a sensation of palpitations. This morning took her heart rate and noted that it was greater than 100. Currently denying any chest pain, nausea, vomiting, fever, chills, dizziness or lightheadedness. States that her thyroid was removed 3 years ago. Is on synthetic thyroid medication. Is also separately stating that over the last 2 weeks she has felt hot and cold flashes and skin irritation. Review of Systems Review of Systems Constitutional: Denies fever or chills [] Eyes: Denies change in visual acuity, redness, or eye pain [] HENT: Denies nasal congestion or sore throat [] Respiratory: Denies cough or shortness of breath [] Cardiovascular: No additional information not addressed in HPI [] GI: Denies abdominal pain, nausea, vomiting, bloody stools or diarrhea [] : Denies dysuria or hematuria [] Musculoskeletal: Denies back pain or joint pain [] Integument: Denies rash or skin lesions [] Neurologic: Denies headache, focal weakness or sensory changes [] Endocrine: Denies polyuria or polydipsia [] All other systems were reviewed and found to be within normal limits, except as documented in this note. Current Medications Current Medications Current Medications Medications (Trade) Dose Ordered Sig/Eron Start Time Stop Time Status Last Admin Dose Admin Sodium Chloride 1,000 ml @ 1,000 mls/hr Q1H 08/30/20 09:45 08/30/20 10:44 DC 08/30/20 09:45 1,000 MLS/HR Allergies Allergies Allergies Coded Allergies Type Severity Reaction Last Updated Verified Penicillins Allergy Intermediate 08/25/20 Yes amoxicillin Allergy Intermediate 08/25/20 Yes Physical Exam Physical Exam Constitutional: Well developed, well nourished, no acute distress, non-toxic appearance. [] HENT: Normocephalic, atraumatic, bilateral external ears normal, oropharynx moist, no oral exudates, nose normal. [] Eyes: PERRLA, EOMI, conjunctiva normal, no discharge. [] Neck: Normal range of motion, no tenderness, supple, no stridor. [] Cardiovascular:Heart rate regular rhythm, no murmur [] Lungs & Thorax: Bilateral breath sounds clear to auscultation [] Abdomen: Bowel sounds normal, soft, no tenderness, no masses, no pulsatile masses. [] Skin: Warm, dry, no erythema, no rash. [] Back: No tenderness, no CVA tenderness. [] Extremities: No tenderness, no cyanosis, no clubbing, ROM intact, very mild pretibial edema Neurologic: Alert and oriented X 3, normal motor function, normal sensory function, no focal deficits noted. [] Psychologic: Affect normal, judgement normal, mood normal. [] Current Patient Data Vital Signs Vital Signs Date Time Temp Pulse Resp B/P (MAP) Pulse Ox O2 Delivery O2 Flow Rate FiO2 08/30/20 09:25 97.8 120 18 135/108 (117) 99 Room Air Lab Results Laboratory Tests Test 08/30/20 09:35 08/30/20 10:26 08/30/20 10:32 08/30/20 10:50 White Blood Count 5.7 x10^3/uL (4.0-11.0) Red Blood Count 3.85 x10^6/uL (3.50-5.40) Hemoglobin 12.3 g/dL (12.0-15.5) Hematocrit 35.6 % (36.0-47.0) L Mean Corpuscular Volume 93 fL (79-100) Mean Corpuscular Hemoglobin 32 pg (25-35) Mean Corpuscular Hemoglobin Concent 35 g/dL (31-37) Red Cell Distribution Width 12.6 % (11.5-14.5) Platelet Count 263 x10^3/uL (140-400) Neutrophils (%) (Auto) 45 % (31-73) Lymphocytes (%) (Auto) 36 % (24-48) Monocytes (%) (Auto) 16 % (0-9) H Eosinophils (%) (Auto) 3 % (0-3) Basophils (%) (Auto) 1 % (0-3) Neutrophils # (Auto) 2.6 x10^3uL (1.8-7.7) Lymphocytes # (Auto) 2.0 x10^3/uL (1.0-4.8) Monocytes # (Auto) 0.9 x10^3/uL (0.0-1.1) Eosinophils # (Auto) 0.2 x10^3/uL (0.0-0.7) Basophils # (Auto) 0.0 x10^3/uL (0.0-0.2) Sodium Level 142 mmol/L (136-145) Potassium Level 3.8 mmol/L (3.5-5.1) Chloride Level 108 mmol/L (98-107) H Carbon Dioxide Level 25 mmol/L (21-32) Anion Gap 9 (6-14) Blood Urea Nitrogen 11 mg/dL (7-20) Creatinine 0.7 mg/dL (0.6-1.0) Estimated GFR (Cockcroft-Gault) 99.6 BUN/Creatinine Ratio 16 (6-20) Glucose Level 97 mg/dL (70-99) Calcium Level 9.2 mg/dL (8.5-10.1) Magnesium Level 1.9 mg/dL (1.8-2.4) Total Bilirubin 0.3 mg/dL (0.2-1.0) Aspartate Amino Transferase (AST) 109 U/L (15-37) H Alanine Aminotransferase (ALT) 215 U/L (14-59) H Alkaline Phosphatase 90 U/L (46-116) Troponin I Quantitative < 0.017 ng/mL (0-0.055) Total Protein 6.9 g/dL (6.4-8.2) Albumin 3.2 g/dL (3.4-5.0) L Albumin/Globulin Ratio 0.9 (1.0-1.7) L Lipase 86 U/L (73-393) Urine Collection Type Unknown Urine Color Yellow Urine Clarity Hazy Urine pH 5.5 Urine Specific [place] <=1.005 Urine Protein Neg (NEG-TRACE) Urine Glucose (UA) Neg mg/dL (NEG) Urine Ketones (Stick) Neg mg/dL (NEG) Urine Blood Neg (NEG) Urine Nitrite Neg (NEG) Urine Bilirubin Neg (NEG) Urine Urobilinogen Dipstick 0.2 mg/dL (0.2 mg/dL) Urine Leukocyte Esterase Neg (NEG) Urine RBC Occ /HPF (0-2) Urine WBC 1-4 /HPF (0-4) Urine Squamous Epithelial Cells Many /LPF Urine Bacteria Few /HPF (0-FEW) POC Urine HCG, Qualitative hcg negative (Negative) LB-Xkm-[id number]-Type Natriuretic Peptide 60 pg/mL (0-124) EKG EKG [] Radiology/Procedures Radiology/Procedures [] Heart Score C/O Chest Pain: No Risk Factors: Risk Factors: DM, Current or recent (<one month) smoker, HTN, HLP, family history of CAD, obesity. Risk Scores: Risk Factors: DM, Current or recent (<one month) smoker, HTN, HLP, family history of CAD, obesity. Course & Med Decision Making Course & Med Decision Making Pertinent Labs and Imaging studies reviewed. (See chart for details) 30F presenting to emergency department for new onset of palpitations. No specific explanation at this time but I am concerned that this does represent acute hyperthyroidism either from retained thyroid tissue or from too much Synthroid. Obtain labs make sure there is no significant underlying cardiac abnormality and reevaluate. 12:01 -patient symptoms resolved her tachycardia has also resolved. Labs unremarkable no cardiac issue. At this time patient is plan to follow-up with her primary care doctor has good resume her metoprolol. I counseled patient extensively on signs and symptoms and reasons to return Dragon Disclaimer Dragon Disclaimer This electronic medical record was generated, in whole or in part, using a voice recognition dictation system. Departure Departure: Impression: Primary Impression: Tachycardia Disposition: 01 DC HOME SELF CARE/HOMELESS Condition: GOOD Referrals: SANG HOOKER MD (PCP) Patient Instructions: Palpitations Additional Instructions: EMERGENCY DEPARTMENT GENERAL DISCHARGE INSTRUCTIONS Thank you for coming to [facility] Emergency Department (ED) today and trusting us with you care. We trust that you had a positive experience in our Emergency Department. If you wish to speak to the department management, you may call the Director at [phone]. YOUR FOLLOW UP INSTRUCTIONS ARE FOLLOWS: 1. Do you have a private Doctor? If you do not have a private doctor, please a sk for a resource list of physicians or clinics that may be able to assist you with follow up care. 2. The Emergency Physicain has interpreted your x-rays. The X-Ray specialist will also review them. If there is a change in the findings, you will be notified in 48 hours when at all possible. 3. A lab test or culture has been done, your results will be reviewed and you will be notified if you need a change in treatment. ADDITIONAL INSTRUCTIONS AND INFORMATION: 1. Your care today has been supervised by a physician who is specially trained in emergency care. Many problems require more than one evaluation for a complete diagnosis and treatment. We recommend that you schedule your follow up appointment as recommended to ensure complete treatment of you illness or injury. If you are unable to obtain follow up care and continue to have a problem, or if your condition worsens, we recommend that you return to the ED. 2. We are not able to safely determine your condition over the phone nor are we able to give sound medical advice over the phone. For these safety reasons, if you call for medical advice we will ask you to come to the ED for further evaluation. 3. If you have any questions regarding these discharge instructions please call the ED at [phone]. SAFETY INFORMATION: In the interest of safety, wellness, and injury prevention; we encourage you to wear your sealbelt, if you smoke; quite smoking, and we encourage family to use a protective helmet for bicycling and other sporting events that present an increased risk for head injury. IF YOUR SYMPTOMS WORSEN OR NEW SYMPTOMS DEVELOP, OR YOU HAVE CONCERNS ABOUT YOUR CONDITION; OR IF YOUR CONDITION WORSENS WHILE YOU ARE WAITING FOR YOUR FOLLOW UP APPOINTMENT; EITHER CONTACT YOUR PRIMARY CARE DOCTOR, THE PHYSICIAN WHOSE NAME AND NUMBER YOU WERE GIVEN, OR RETURN TO THE ED IMMEDIATELY. EDWARD SHARMA MD Aug 30, 2020 12:03
== END 2020-08-30 12:12 | disposition home or self-care (01) ==
LOC: ER 09:25
DX: R00.0 Tachycardia, unspecified (principal); R60.1 Generalized edema; I10 Essential (primary) hypertension; E03.9 Hypothyroidism, unspecified; Z88.0 Allergy status to penicillin; Z88.1 Allergy status to other antibiotic agents
CPT/HCPCS: 36415; 71045; 80053; 81001; 81025; 83690; 83735; 83880; 84443; 84484; 85025; 93005; 96360; 99285; J7030